=== PATIENT | female | born 1960 | race Caucasian/White ===

== ENCOUNTER 2017-02-28 14:48 | Emergency (ER) | payer OTHER ==
[2017-02-28 14:57] VITALS: BP 118/69
--- NOTE | 2017-02-28 15:23 | UC ---
Lower Extremity/Ankle HPI - HPI Summary HPI Summary: right great toe lateral side with pain, erythema and swelling - History of Current Complaint Chief Complaint: UCLowerExtremity Stated Complaint: R TOE INFECTED Time Seen by Provider: 02/28/17 15:00 Hx Obtained From: Patient ?: No Onset/Duration: Gradual Onset, Lasting Days, Still Present Severity Initially: Mild Severity Currently: Moderate Pain Intensity: 5 Pain Scale Used: 0-10 Numeric Aggravating Factor(s): Standing, Ambulation Able to Bear Weight: Yes - Allergies/Home Medications Allergies/Adverse Reactions: Allergies Allergy/AdvReac Type Severity Reaction Status Date / Time Penicillins [PCN] Allergy See Comment Verified 02/28/17 14:57 Home Medications: Home Medications Atorvastatin* [Lipitor 40 MG*] 40 mg PO DAILY 02/28/17 [History Confirmed ] Citalopram TAB* [Celexa TAB*] 25 mg PO DAILY 02/28/17 [History Confirmed ] Insulin Glargine [Lantus] 16 02/28/17 [History] Lisinopril/HCTZ 20/12.5(NF) [Zestoretic 20/12.5(NF)] 1 tab PO DAILY 02/28/17 [ History Confirmed 02/28/17] Pioglitazone HCl 30 mg PO 02/28/17 [History] Sitagliptin-Metformin HCl [Janumet 50-1000 mg] 1 tab PO 02/28/17 [History] PMH/Surg Hx/FS Hx/Imm Hx Previously Healthy: No Endocrine History: Diabetes Cardiovascular History: Hypertension Psychological History: Anxiety - Surgical History Surgical History: Yes Surgery Procedure, Year, and Place: hysterectomy, choley, t&a - Family History Known Family History: Positive: None - Social History Occupation: Employed Full-time Lives: With Family Alcohol Use: None Substance Use Type: None Smoking Status (MU): Never Smoked Tobacco Review of Systems Constitutional: Negative Skin: Other - erythema right great toe Eyes: Negative ENT: Negative Respiratory: Negative Cardiovascular: Negative Gastrointestinal: Negative Genitourinary: Negative Motor: Negative Neurovascular: Negative Musculoskeletal: Edema - right great toe, Myalgia - right great toe Neurological: Negative Psychological: Negative All Other Systems Reviewed And Are Negative: Yes Physical Exam Triage Information Reviewed: Yes Appearance: Well-Appearing, No Pain Distress, Well-Nourished Vital Signs: Initial Vital Signs Temp 99.1 F 02/28/17 14:53 Pulse 108 02/28/17 14:53 Resp 18 02/28/17 14:53 BP 118/69 02/28/17 14:53 Pulse Ox 99 02/28/17 14:53 Vital Signs Reviewed: Yes Eye Exam: Normal Eyes: Positive: Conjunctiva Clear ENT Exam: Normal ENT: Positive: Normal ENT inspection, Hearing grossly normal. Negative: Nasal congestion, Nasal drainage, TMs normal, Trismus, Muffled/hoarse voice Dental Exam: Normal Neck exam: Normal Neck: Positive: Supple, Nontender Respiratory Exam: Normal Respiratory: Positive: Chest non-tender, No respiratory distress, No accessory muscle use Cardiovascular Exam: Normal Cardiovascular: Positive: RRR, Pulses Normal, Brisk Capillary Refill Musculoskeletal Exam: Normal Musculoskeletal: Positive: Strength Intact, ROM Intact, Edema @ - right great toe Neurological Exam: Normal Neurological: Positive: Alert, Muscle Tone Normal Psychological Exam: Normal Skin Exam: Other Skin: Positive: Other - erythema, tenderness swelling right great toe Lower Extremity Course/Dx - Course Course Of Treatment: warm soaks, keflex, check fsbs as planned follow with pcp - Differential Dx/Diagnosis Differential Diagnosis/HQI/PQRI: Contusion, Infection Provider Diagnoses: Paronychia left great toe Discharge - Discharge Plan Condition: Stable Disposition: HOME Prescriptions: Cephalexin CAP* [Keflex CAP*] 500 mg PO QID #28 cap Patient Education Materials: Paronychia (ED), Warm Compress or Soak (ED) Referrals: Mirta Coombs MD [Primary Care Provider] - 5 Days
== END 2017-02-28 15:40 | disposition home or self-care (01) ==
LOC: UCEAST 14:48
DX: L03.032 Cellulitis of left toe (principal); E11.9 Type 2 diabetes mellitus without complications; Z79.4 Long term (current) use of insulin; I10 Essential (primary) hypertension; F41.9 Anxiety disorder, unspecified; Z90.49 Acquired absence of other specified parts of digestive tract; Z90.710 Acquired absence of both cervix and uterus; Z88.0 Allergy status to penicillin
CPT/HCPCS: 99202; G0463

== ENCOUNTER 2022-06-25 12:45 | Inpatient (IN) ==
[2022-08-04] MEDS ORDERED: Lactated Ringers 1000 ml BAG 1,000 ML IV SCH (06:00)
[2022-08-04] MEDS ORDERED: Buffered Lidocaine 1% SYRIN 1 ml INTRADERM ONE (06:00)
[2022-08-04] MEDS ORDERED: Clindamycin 900 MG/D5W BAG 900 MG/50 ML BAG IVPB ONE (08:41)
[2022-08-04] MEDS ORDERED: Prochlorperazine 5 mg/ml 2 ml VIAL (10 mg) IV PRN (10:09)
[2022-08-04] MEDS ORDERED: fentaNYL 100 mcg/2 ml 50 MCG/ML VIAL IV PRN (10:09)
[2022-08-04] MEDS ORDERED: HYDROmorphone 1 MG/1 ML SYRINGE IV PRN (10:09)
[2022-08-04] MEDS ORDERED: Ondansetron 4 mg VIAL 2 MG/ML 2 ml VIAL IV PRN ×2 (10:09→11:55)
[2022-08-04] MEDS ORDERED: Naloxone 0.4 mg VIAL 0.4 mg/ml 1 ml VIAL IV PRN (10:09)
[2022-08-04] MEDS ORDERED: fentaNYL 250 mcg/5 ml 50 MCG/ML 5 ml VIAL (250 MCG) ONE (10:43)
[2022-08-04] MEDS ORDERED: Midazolam 2 mg/2 ml VIAL 1 mg/ml 2 ml VIAL (2 mg) ONE (10:43)
[2022-08-04] MEDS ORDERED: Rocuronium 50 mg VIAL 10 mg/ml 5 ml VIAL (50 mg) ONE ×2 (10:43→11:52)
[2022-08-04] MEDS ORDERED: Esmolol 10 MG/ML 10 ML (100 mg) ONE (10:45)
[2022-08-04] MEDS ORDERED: Lidocaine 2% PF 5 ML VIAL ONE (10:45)
[2022-08-04] MEDS ORDERED: Propofol 10 MG/ML 20 ML BTL ONE (10:45)
[2022-08-04] MEDS ORDERED: ROPIVACAINE 5 MG/ML 30 ML BTL (0.5%) ONE (10:49)
[2022-08-04] MEDS ORDERED: HYDROmorphone 0.5 MG/0.5 ML SYRINGE ONE ×2 (11:13→12:04)
[2022-08-04] MEDS ORDERED: Lactulose 30 ml UDC PO PRN (11:55)
[2022-08-04] MEDS ORDERED: Morphine 2 MG/ML SYRINGE IV PRN (11:55)
[2022-08-04] MEDS ORDERED: Magnesium Hydroxide LIQ 30 ML UDC PO PRN (11:55)
[2022-08-04] MEDS ORDERED: Ondansetron ODT 4 mg TAB 4 MG TAB PO PRN (11:55)
[2022-08-04] MEDS ORDERED: Acetaminophen IV 1 GM/100ML 1,000 MG/100 ML BAG IV ONE (12:18)
[2022-08-04] MEDS ORDERED: Phenylephrine IV 10 MG/ML 1 ml VIAL ONE (12:18)
[2022-08-04] MEDS ORDERED: Dexamethasone IV 4 MG/ML VIAL 1 ml VIAL ONE (12:18)
[2022-08-04] MEDS ORDERED: Ondansetron 4 mg VIAL 2 MG/ML 2 ml VIAL ONE (12:18)
[2022-08-04] MEDS ORDERED: Metoprolol Tartrate 5 mg VIAL 5 ml VIAL (1 mg/ml) ONE (12:37)
[2022-08-04] MEDS ORDERED: Ropivacaine 5 MG/ML 20 ML VIAL 0.5% (100 MG) ONE (12:53)
[2022-08-04] MEDS ORDERED: fentaNYL 100 mcg/2 ml 50 MCG/ML VIAL ONE (14:41)
[2022-08-04] MEDS ORDERED: Albuterol HFA INHALER 8 gm MDI INH PRN (15:30)
[2022-08-04] MEDS ORDERED: Fluticasone NASAL SPRAY 50MCG 16 gm SPRAY BTL INTRANASAL PRN (15:30)
[2022-08-04] MEDS: Lactated Ringers 1000 ml BAG 1,000 ML IV SCH (15:58)
[2022-08-04] MEDS: Clindamycin 600 MG/D5W BAG 600 MG/50 ML BAG IV SCH (20:23)
[2022-08-04] MEDS ORDERED: Insulin GLARGINE 100 un/ml 10 ml VIAL SUBCUT SCH ×2 (21:00)
[2022-08-04] MEDS: Magnesium Hydroxide LIQ 30 ML UDC PO SCH (21:14)
[2022-08-05] MEDS: Lactated Ringers 1000 ml BAG 1,000 ML IV SCH (02:45)
[2022-08-05] MEDS: Clindamycin 600 MG/D5W BAG 600 MG/50 ML BAG IV SCH ×2 (03:29→12:14)
[2022-08-05 06:14] LABS: Hematocrit 26 % (35-47); Hemoglobin 8.2 g/dL (12.0-16.0); Mean Platelet Volume 8.9 fL (7.4-10.4); Platelet Count 273 10^3/uL (150-450)
[2022-08-05 06:32] LABS: Calcium 8.7 mg/dL (8.6-10.3); Creatinine, Serum 1.18 mg/dL (0.51-0.95); Potassium 4.3 mmol/L (3.5-5.0); eGFR CKD-EPI 52.9 (>60)
[2022-08-05] MEDS: Magnesium Hydroxide LIQ 30 ML UDC PO SCH (08:11)
[2022-08-05] MEDS ORDERED: CMCS: SitaGLIPtin 25mg TAB (NF) 25 MG TAB PO SCH (09:00)
[2022-08-05] MEDS ORDERED: Vitamin THERAPEUTIC TAB PO SCH (09:00)
[2022-08-05] MEDS ORDERED: SITAGLIP PO SCH (09:00)
[2022-08-05] MEDS ORDERED: Cholecalciferol (VIT D3) 1,000 unit TAB PO SCH (09:00)
[2022-08-05] MEDS ORDERED: [UNRECOGNIZED DRUG - OTHER] PO SCH (09:00)
[2022-08-05 11:12] VITALS: BP 123/74
[2022-08-05 12:11] LABS: Hematocrit 26 % (35-47); Hemoglobin 8.2 g/dL (12.0-16.0)
== END 2022-08-05 14:40 | disposition home or self-care (01) | DRG 301 ==
LOC: AA 08-04 08:14 → INTOOBSV 08-04 08:14 → SSU 08-04 16:06
PROVIDERS: ADMIT Orthopaedic Surgery Adult Reconstructive Orthopaedic Surgery; ATTEND Orthopaedic Surgery Adult Reconstructive Orthopaedic Surgery